=== PATIENT | female | born 1980 | race Caucasian/White ===

== ENCOUNTER 2017-11-12 09:51 | Day surgery (SDC) | payer OTHER ==
[2017-11-11 12:12] VITALS: BMI 22.6
[~2017-11-12 09:51] MED LIST: LIDOCAINE HCL 1%, 10 MG/ML (20ML VIAL) INF ONE
--- NOTE | 2017-11-12 11:58 | HP ---
Admitting History and Physical - Primary Care Physician PCP: Petra Garcia - Admission Chief Complaint: 37yo P3 with vaginal cyst, Dyspareunia History of Present Illness: Reports difficulty with sexual activity and increase in size of vaginal wall cyst over a period of time History Source: Patient Limitations to Obtaining History: No Limitations - Past Medical History ...LMP: 10/24/17 ...LMP Comment: REGULAR ...: No ...: 3 ...Para: 3 - Past Surgical History Past Surgical History: Yes: None - Smoking History Smoking history: Never smoked Have you smoked in the past 12 months: No - Alcohol/Substance Use Hx Alcohol Use: No Home Medications - Allergies Allergies/Adverse Reactions: Allergies Allergy/AdvReac Type Severity Reaction Status Date / Time No Known Allergies Allergy Verified 11/12/17 10:39 - Home Medications Home Medications: Ambulatory Orders NK [No Known Home Medication] 11/11/17 Family Disease History - Family Disease History Family History: Denies Review of Systems - Review of Systems Constitutional: reports: No Symptoms Eyes: reports: No Symptoms HENT: reports: No Symptoms Neck: reports: No Symptoms Cardiovascular: reports: No Symptoms Respiratory: reports: No Symptoms Gastrointestinal: reports: No Symptoms Genitourinary: reports: No Symptoms Breasts: reports: No Symptoms Reported Musculoskeletal: reports: No Symptoms Integumentary: reports: No Symptoms Neurological: reports: No Symptoms Endocrine: reports: No Symptoms Hematology/Lymphatic: reports: No Symptoms Psychiatric: reports: No Symptoms Physical Examination Vital Signs: Vital Signs Temperature 98.0 F 11/12/17 10:37 Pulse Rate 73 11/12/17 10:37 Respiratory Rate 20 11/12/17 10:37 Blood Pressure 126/80 11/12/17 10:37 O2 Sat by Pulse Oximetry (%) 97 11/12/17 10:37 Constitutional: Yes: Well Nourished Eyes: Yes: WNL, Conjunctiva Clear HENT: Yes: WNL, Atraumatic, Normocephalic Neck: Yes: WNL, Supple, Trachea Midline Cardiovascular: Yes: WNL, Regular Rate and Rhythm Respiratory: Yes: WNL, Regular, CTA Bilaterally Gastrointestinal: Yes: WNL, Normal Bowel Sounds, Soft ...Rectal Exam: Yes: WNL Renal/: Yes: WNL, Other (Right wall 15mm vaginal wall cyst) Breast(s): Yes: WNL Musculoskeletal: Yes: WNL Extremities: Yes: WNL Edema: No Peripheral Pulses WNL: Yes Integumentary: Yes: WNL Wound/Incision: Yes: Clean/Dry, Well Approximated Neurological: Yes: WNL, Alert, Oriented ...Motor Strength: WNL Psychiatric: Yes: WNL, Alert, Oriented Assessment/Plan 37yo P3 with vaginal wall inclusion cyst, Dyspareunia will take to the OR for surgical incision consent signed, witnessed all questions answered
--- NOTE | 2017-11-12 12:11 | OP ---
Operative Note - Note: Operative Date: 11/12/17 Pre-Operative Diagnosis: Vaginal wall inclussion cyst Operation: Excision of vaginal wall cyst Findings: 2cm R vaginal wall sebaceous cyst 1cc of sebaceous material removed Post-Operative Diagnosis: Same as Pre-op Surgeon: Petra Garcia Anesthesiologist/CLOTH DYER: Oscar York Anesthesia: MAC Specimens Removed: Cyst wall. Sebacious material Estimated Blood Loss (mls): 5 Fluid Volume Replaced (mls): 400 Operative Report Dictated: Yes
[2017-11-12] MEDS ORDERED: LIDOCAINE 1%/EPI 1:100000 (20 ML MULTI DOSE VIAL) ONE (12:17)
[2017-11-12] MEDS ORDERED: MIDAZOLAM HCL 2 MG/2 ML SINGLE DOSE VIAL ONE (12:21)
[2017-11-12] MEDS ORDERED: oxyCODONE HCL 5 MG TABLET PO PRN ×2 (13:26)
[2017-11-12] MEDS ORDERED: IBUPROFEN 600 MG TABLET (FP) PO PRN (13:26)
[2017-11-12] MEDS ORDERED: ONDANSETRON 4 MG/2 ML VIAL IVPUSH PRN ×2 (13:26)
[2017-11-12] MEDS ORDERED: IBUPROFEN 800 MG/8 ML IJ IVPB PRN (13:26)
[2017-11-12] MEDS ORDERED: LACTATED RINGERS SOLUTION 1,000 ML IV SCH (14:15)
[2017-11-12] MEDS ORDERED: ELECTROLYTE-148 SOLN 1,000 ML IV SCH (14:15)
[2017-11-12 16:01] VITALS: TEMP 97.8
[2017-11-12 17:57] VITALS: BP 102/63; PULSE 72
--- NOTE | 2017-11-13 00:31 | OP ---
DATE OF OPERATION: DATE OF DICTATION: 11/12/2017 PREOPERATIVE DIAGNOSIS: Vaginal wall inclusion cyst. OPERATION: Excision of vaginal vault cyst. FINDINGS: A 2-cm right vaginal wall sebaceous cyst and a 1-cm sebaceous material removed together with cyst wall. POSTOPERATIVE DIAGNOSIS: Vaginal wall inclusion cyst. SURGEON: Petra Garcia M.D. IP NETWORK ARCHITECT: Jl Oliver CRNA ANESTHESIOLOGIST: Oscar York M.D. ANESTHESIA: MAC SPECIMENS: Removed: 1. Cyst wall. 2. Sebaceous material. DESCRIPTION OF OPERATIVE PROCEDURE: After showing informed consent, patient was brought to the operating room where she was placed in dorsal lithotomy position. Perineum and vagina were prepped and draped in a sterile fashion. The were used to outline the cyst on each side. Scalpel, 15 gauge used to incise the cyst wall and mucosa overlying the cyst wall. were placed on each side of the incision, and the cyst was enucleated with Metzenbaum scissors. In the process of enucleation, large amount of sebaceous material was expressed. Cyst wall was incised in its entirety and sebaceous material and the cyst wall were sent to pathology. The entire incision was under 1 cm. The defect in the vaginal wall was repaired with 2 [id number] with 2-0 Vicryl, and defect was closed; subsequently the vaginal mucosa was oversewn with 2-0 Vicryl in 3 interrupted sutures. All instruments and sponges were removed from the vagina. Patient tolerated procedure well. Estimated blood loss was 5 mL. Patient received 400 mL of fluids and was extubated and brought to the recovery room in stable condition. Kerline [id number]
--- NOTE | 2017-11-15 17:24 | PATH ---
Surgical Pathology Report Patient Name: JARROD MANRIQUEZ [facility]. Rec. #: [id number] /Age/Gender: 1980 (Age: 37) / F Account: [id number] Location: [facility] SURGICAL Taken: 11/12/2017 Received: 11/13/2017 Reported: 11/15/2017 Physicians: Petra Garcia M.D. Specimen(s) Received VAGINAL CYST WALL Clinical History Vaginal cyst Final Diagnosis VAGINAL CYST WALL, EXCISION: BENIGN CYST LINED BY SQUAMOUS EPITHELIUM AND FIBROUS TISSUE. Electronically Signed Ricco Martin M.D. Gross Description Received in formalin labeled "vaginal cyst wall" are 2 murdock alberts soft tissue fragments measuring 0.8 and 1.0 cm in greatest dimension, consistent with portions of a cyst wall. The specimens are submitted in toto in one cassette. /11/13/2017/11/13/2017
== END 2017-11-12 17:58 | disposition home or self-care (01) ==
LOC: JASU-SURG 09:51
PROVIDERS: ATTEND Obstetrics & Gynecology
PROC: 0UBG7ZZ Excision of Vagina, Via Natural or Artificial Opening (ICD-10-PCS; principal; 2017-11-12 11:30)
DX: N89.8 Other specified noninflammatory disorders of vagina (principal)
CPT/HCPCS: 84703

== ENCOUNTER 2018-01-12 14:23 | Emergency (ER) | payer OTHER ==
[2018-01-12 14:28] VITALS: BP 121/89; PULSE 100; TEMP 98.2; BMI 22.3
[2018-01-12] MEDS ORDERED: KETOROLAC TROMETHAMINE 60 MG/2 ML VIAL IM ONE (14:52)
[2018-01-12] MEDS ORDERED: KETOROLAC TROMETHAMINE 60 MG/2 ML VIAL ONE (14:54)
[2018-01-12] MEDS ORDERED: diazePAM 5 MG TABLET PO ONE (15:06)
[2018-01-12] MEDS ORDERED: diazePAM 5 MG TABLET ONE (15:15)
--- NOTE | 2018-01-12 15:25 | PDOC ---
History of Present Illness - General Chief Complaint: Back Pain Stated Complaint: BACK PAIN - History of Present Illness Initial Comments: 37 -year-old healthy female with atraumatic onset of lower back pain with posterior lateral leg radiculopathy without loss of bowel or bladder function. She has no comorbidities. She is unsure what she did to cause her back pain and radicular symptoms. 01/12/18 15:23 Past History - Past Medical History Allergies/Adverse Reactions: Allergies Allergy/AdvReac Type Severity Reaction Status Date / Time No Known Allergies Allergy Verified 01/12/18 14:28 Home Medications: Ambulatory Orders Cyclobenzaprine HCl [Flexeril 10 mg] 10 mg PO HS PRN #10 tablet 01/12/18 Methylprednisolone [Medrol Dose Jun] 4 mg PO ASDIR #21 tablet 01/12/18 Anemia: No Asthma: No Cancer: No Cardiac Disorders: No CVA: No COPD: No CHF: No Dementia: No Diabetes: No GI Disorders: No Disorders: No HTN: No Hypercholesterolemia: No Liver Disease: No Seizures: No Thyroid Disease: No - Surgical History Abdominal Surgery: No Appendectomy: No Cardiac Surgery: No Cholecystectomy: No Lung Surgery: No Neurologic Surgery: No Orthopedic Surgery: No - Suicide/Smoking/Psychosocial Hx Smoking History: Never smoked Have you smoked in the past 12 months: No Information on smoking cessation initiated: No Hx Alcohol Use: No Drug/Substance Use Hx: No Substance Use Type: None Hx Substance Use Treatment: No Review of Systems - Review of Systems Musculoskeletal: Yes: Back Pain All Other Systems: Reviewed and Negative *Physical Exam - Vital Signs Last Vital Signs Temp Pulse Resp BP Pulse Ox 98.2 F 100 H 16 121/89 100 01/12/18 14:27 01/12/18 14:27 01/12/18 14:27 01/12/18 14:27 01/12/18 14:27 - Physical Exam Comments: Lumbar spine skin color and temperature are normal range of motion is decreased. She has mild tenderness about the left and right paralumbar musculature with mild palpable spasm. 5 out of 5 strength in bilateral upper extremities. Negative straight leg raise test on the right mildly positive on the left. Thighs and calves are soft and nontender she is neurovascularly intact. 01/12/18 15:24 ED Treatment Course - Medications Given in the ED: ED Medications Discontinued Medications Generic Name Dose Route Start Last Admin Trade Name Lilian PRN Reason Stop Dose Admin Diazepam 10 mg 01/12/18 15:06 01/12/18 15:17 Valium - PO 01/12/18 15:07 10 mg ONCE ONE Administration Ketorolac Tromethamine 60 mg 01/12/18 14:52 01/12/18 15:17 Toradol Injection - IM 01/12/18 14:53 60 mg ONCE ONE Administration Medical Decision Making - Medical Decision Making Minimal relief with IM Toradol IV ordered 10 mg of Valium I will reevaluate her progress. 01/12/18 15:24 01/12/18 16:38 Patient had some improvement after Toradol and Valium an ideal for meth I will treat her with a Medrol Dosepak and Flexeril and spine surgery follow-up. *DC/Admit/Observation/Transfer Diagnosis at time of Disposition: Lumbar radicular pain - Discharge Dispostion Disposition: HOME Condition at time of disposition: Improved Decision to Admit order: No - Referrals Referrals: Lisa Zelaya MD [Primary Care Provider] - Ric Richard MD [Staff Physician] - - Patient Instructions Printed Discharge Instructions: Lumbar Radiculopathy, DI for Lumbar Radiculopathy Additional Instructions: Return to the emergency room should symptoms worsen or go unresolved. Please follow up with spine surgery in 1-2 days for further evaluation and treatment options. Take the medication as directed. The muscle relaxer will make you sleepy its one tablet before bedtime. - Post Discharge Activity
[2018-01-12] MEDS ORDERED: ACETAMINOPHEN 1000 MG/100 ML VIAL (NON FORMULARY) IVPB ONE (15:28)
[2018-01-12] MEDS ORDERED: ACETAMINOPHEN INJECTION 100 ML IVPB ONE (15:49)
== END 2018-01-12 16:52 | disposition home or self-care (01) ==
LOC: JERFT 14:23
PROC: 3E033NZ Introduction of Analgesics, Hypnotics, Sedatives into Peripheral Vein, Percutaneous Approach (ICD-10-PCS; principal; 2018-01-12)
PROC: 3E0233Z Introduction of Anti-inflammatory into Muscle, Percutaneous Approach (ICD-10-PCS; 2018-01-12)
DX: M54.16 Radiculopathy, lumbar region (principal)
CPT/HCPCS: 96372; 96374; 99281-25; J0131